=== PATIENT | female | born 1960 | race Caucasian/White ===

== ENCOUNTER 2023-01-30 13:25 | Emergency (ER) | payer OTHER ==
[~2023-01-30] VITALS: Ht 167.6 cm; Wt 83.9 kg
[2023-01-30 13:25] VITALS: BP 128/67; PULSE 98; RESP 18; TEMP 98; O2SAT 94
[2023-01-30 13:54] LABS: BASOPHIL # 0.1 10^3/uL (0.0-0.1); BASOPHIL % 1.2 % (0.0-0.2); EOSINOPHIL # 0.1 10^3/uL (0.0-0.2); EOSINOPHIL % 0.8 % (0.0-5.0); HEMATOCRIT(ML) 37.5 % (36.0-46.0); HEMOGLOBIN 12.3 g/dL (12.0-15.0); LYMPHOCYTES # 2.08 10^3/uL1 (1.0-4.8); LYMPHOCYTES % 22.6 % (24.0-44.0); MEAN CORP HGB 29.6 pg (26-34); MEAN CORP HGB CONCENTRATION 32.8 g/dL (33-36.5); MEAN CORP VOLUME 90.4 fL (78-100); MONOCYTES # 0.8 10^3/uL (0.3-0.8); MONOCYTES % 8.6 % (5.0-12.0); NEUTROPHIL # 6.1 10^3/uL (1.8-7.7); NEUTROPHILS % 66.7 % (41.0-85.0); PLATELET COUNT 422 10^3/uL (150-400); RED BLOOD CELL 4.15 10^6/uL (4.00-5.20); RED CELL DISTRIBUTION WIDTH 15.2 % (11.5-14.5); WHITE BLOOD CELL 9.2 10^3/uL (4.5-11.0)
[2023-01-30] MEDS ORDERED: ASPIRIN PO PRN (14:00)
[2023-01-30 14:01] LABS: +ADD MANUAL DIFF(NO CHRG) NO
[2023-01-30 14:09] LABS: ALANINE AMINOTRANSFERASE(ML) 16 U/L (12-78); ALBUMIN(ML) 3.8 g/dL (3.4-5.0); ALBUMIN/GLOBULIN RATIO 1.117; ALKALINE PHOSPHATASE 33 U/L (50-136); ANION GAP 15.4; ASPARTATE AMINO TRANSFERASE 20 U/L (0-35); CALCIUM 9.7 mg/dL (8.4-10.5); CARBON DIOXIDE 25.3 mmol/L (20.0-32); CREATININE SERUM 0.64 mg/dL (0.59-1.40); EST GFR, NON-AA 93.4 (>/=60); GLUCOSE 119 mg/dL (74-106); POTASSIUM 3.7 mmol/L (3.6-5.2); SODIUM 142 mmol/L (132-145)
[2023-01-30 14:11] LABS: TROPONIN I HIGH SENSITIVITY < 4 ng/L (0-50)
[2023-01-30 14:42] VITALS: BP 127/81; PULSE 86; RESP 18; O2SAT 89
[2023-01-30] MEDS ORDERED: ASPIRIN ONE (14:50)
== END 2023-01-30 14:58 | disposition home or self-care (01) ==
LOC: ER 13:25
DX: R07.9 Chest pain, unspecified (principal); F17.290 Nicotine dependence, other tobacco product, uncomplicated; Z90.89 Acquired absence of other organs
CPT/HCPCS: 36415; 71045; 80053; 84484; 85025; 85610; 85730; 93005; 99285